=== PATIENT | male | born 1935 | race Caucasian/White ===

== ENCOUNTER 2020-01-09 22:22 | Inpatient (IN) ==
[2020-01-09] MEDS ORDERED: PNEUMOCOCCAL VACCINE (13 VALENT) 0.5 ML SYRINGE IM ONE (23:54)
[2020-01-10] MEDS ORDERED: ALBUTEROL 2.5 MG/3 ML NEB RESP TX PRN ×2 (00:58→02:35)
[2020-01-10] MEDS: ALBUTEROL/IPRATROPIUM 3 ML NEB RESP TX SCH ×4 (01:18→19:27)
[2020-01-10 01:23] LABS: Basophils % 0.2 % (0.0-0.8); Eosinophils % 0.1 % (0.00-10.9); Hematocrit 43.6 VOL% (42.0-52.0); Hemoglobin 14.6 GM/DL (14.0-18.0); Immature Granulocytes % 0.8 %; Immature Granulocytes Absolute 0.14 #; Lymphocytes # 0.7 10*3/uL (1.4-4.0); Lymphocytes % 4.1 % (21.2-54.2); Mean Corpuscular HGB Conc 33.5 GM/DL (32-36); Mean Corpuscular Volume 82.7 FL (87-102); Mean Platelet Volume 10.2 FL (9.6-12.0); Monocytes % 1.2 % (1.7-12.7); Neutrophils % 93.6 % (38.7-73.9); Platelet Count 233 T/CUMM (130-400); Red Blood Count 5.27 MC/CUMM (3.8-5.5); Red Cell Distribution Width 13.3 % (9.3-17.3); White Blood Count 17.2 T/CUMM (4-12)
[2020-01-10 01:45] LABS: Lymphocytes 2 % (20-55); Segmented Neutrophils 96 % (50-85); Total Cells Counted 100
[2020-01-10 01:47] LABS: Bilirubin,Total 0.5 MG/DL (0.2-1.0); Calcium 9.3 MG/DL (8.5-10.1); Hypochromasia 1+; Ovalocytes 1+; Platelet Estimate Normal; Total Protein 7.5 G/DL (6.4-8.3)
[2020-01-10 02:02] LABS: Troponin I 0.023 NG/ML (0.00-0.045)
[2020-01-10] MEDS: cefTRIAXone 1,000 MG in SYRINGE 1 EACH IV SCH (02:14)
[2020-01-10] MEDS ORDERED: AZITHROMYCIN INJ 500 MG in SODIUM CHLORIDE 0.9% 250 ML IV SCH (02:30)
[2020-01-10] MEDS ORDERED: DOCUSATE SODIUM 100 MG CAPSULE PO PRN (02:35)
[2020-01-10] MEDS ORDERED: ACETAMINOPHEN 325 MG TABLET PO PRN (02:35)
[2020-01-10] MEDS ORDERED: DEXTROSE 50% 25 GM/50 ML VIAL IV PRN (02:35)
[2020-01-10] MEDS ORDERED: ONDANSETRON 4 MG/2 ML VIAL IV PRN (02:35)
[2020-01-10] MEDS ORDERED: hydrALAZINE 20 MG/1 ML VIAL IV PRN (02:35)
[2020-01-10] MEDS ORDERED: GLUCAGON 1 MG VIAL IM PRN (02:35)
[2020-01-10] MEDS: LEVOTHYROXINE 75 MCG TABLET PO SCH (05:57)
[2020-01-10] MEDS: ALFUZOSIN 10 MG TABLET PO SCH (08:47)
[2020-01-10] MEDS: INSULIN LISPRO 100 UNIT/ML SUBCUT SCH ×4 (08:47→20:16)
[2020-01-10] MEDS: FEXOFENADINE 180 MG TABLET PO SCH (08:47)
[2020-01-10] MEDS: ASPIRIN 325 MG TABLET PO SCH (08:47)
[2020-01-10] MEDS: ENOXAPARIN 30 MG/0.3 ML SYRINGE SUBCUT SCH (08:47)
[2020-01-10] MEDS: carvediloL 12.5 MG TABLET PO SCH ×2 (08:48→20:16)
[2020-01-10] MEDS: amLODIPine 10 MG TABLET PO SCH (08:48)
[2020-01-10] MEDS: FERROUS SULFATE 325 MG TABLET PO SCH ×2 (08:48→20:16)
[2020-01-10] MEDS: AZITHROMYCIN 250 MG TABLET PO SCH (08:48)
[2020-01-10] MEDS: LOSARTAN 50 MG TABLET PO SCH (08:52)
[2020-01-10] MEDS ORDERED: FUROSEMIDE 40 MG TABLET PO SCH (09:00)
[2020-01-10] MEDS: FUROSEMIDE 40 MG TABLET PO SCH (20:13)
[2020-01-10] MEDS: ATORVASTATIN 20 MG TABLET PO SCH (20:16)
[2020-01-10] MEDS ORDERED: INSULIN GLARGINE 100 UNIT/ML SUBCUT SCH (21:00)
[2020-01-11] MEDS: ALBUTEROL/IPRATROPIUM 3 ML NEB RESP TX SCH ×4 (00:10→19:36)
[2020-01-11] MEDS: cefTRIAXone 1,000 MG in SYRINGE 1 EACH IV SCH (02:21)
[2020-01-11 05:55] LABS: Basophils % 0.1 % (0.0-0.8); Hematocrit 35.9 VOL% (42.0-52.0); Immature Granulocytes Absolute 0.21 #; Lymphocytes # 2.4 10*3/uL (1.4-4.0); Mean Corpuscular Volume 82.2 FL (87-102); Mean Platelet Volume 10.9 FL (9.6-12.0); Monocytes % 4.5 % (1.7-12.7); Neutrophils % 83.4 % (38.7-73.9); Platelet Count 220 T/CUMM (130-400); Red Blood Count 4.37 MC/CUMM (3.8-5.5); Red Cell Distribution Width 13.5 % (9.3-17.3); White Blood Count 21.5 T/CUMM (4-12)
[2020-01-11 06:07] LABS: Hemoglobin 12.2 GM/DL (14.0-18.0)
[2020-01-11 06:20] LABS: Albumin 2.4 G/DL (3.4-5.0); Bilirubin,Total 0.7 MG/DL (0.2-1.0); Calcium 9.3 MG/DL (8.5-10.1); Osmolality,Calculated 300.4 MOS/KG (273-304); Total Protein 6.2 G/DL (6.4-8.3)
[2020-01-11 06:23] LABS: Lymphocytes 10 % (20-55); Platelet Estimate Normal; Segmented Neutrophils 86 % (50-85); Total Cells Counted 100
[2020-01-11] MEDS: LEVOTHYROXINE 75 MCG TABLET PO SCH (06:23)
[2020-01-11] MEDS: FEXOFENADINE 180 MG TABLET PO SCH (09:36)
[2020-01-11] MEDS: ASPIRIN 325 MG TABLET PO SCH (09:36)
[2020-01-11] MEDS: AZITHROMYCIN 250 MG TABLET PO SCH (09:36)
[2020-01-11] MEDS: amLODIPine 10 MG TABLET PO SCH (09:37)
[2020-01-11] MEDS: carvediloL 12.5 MG TABLET PO SCH ×2 (09:37→20:44)
[2020-01-11] MEDS: LOSARTAN 50 MG TABLET PO SCH (09:37)
[2020-01-11] MEDS: FERROUS SULFATE 325 MG TABLET PO SCH ×2 (09:38→20:44)
[2020-01-11] MEDS: INSULIN LISPRO 100 UNIT/ML SUBCUT SCH ×4 (09:39→20:44)
[2020-01-11] MEDS: ALFUZOSIN 10 MG TABLET PO SCH (09:42)
[2020-01-11] MEDS: ENOXAPARIN 30 MG/0.3 ML SYRINGE SUBCUT SCH (09:42)
[2020-01-11] MEDS: FUROSEMIDE 40 MG TABLET PO SCH (12:31)
[2020-01-11] MEDS ORDERED: INSULIN GLARGINE 100 UNIT/ML SUBCUT SCH (13:15)
[2020-01-11] MEDS ORDERED: SODIUM CHLORIDE 0.9% 1,000 ML IV SCH (13:30)
[2020-01-11] MEDS: ATORVASTATIN 20 MG TABLET PO SCH (20:44)
[2020-01-12] MEDS: ALBUTEROL/IPRATROPIUM 3 ML NEB RESP TX SCH ×2 (01:37→07:10)
[2020-01-12] MEDS: cefTRIAXone 1,000 MG in SYRINGE 1 EACH IV SCH (02:34)
[2020-01-12] MEDS: LEVOTHYROXINE 75 MCG TABLET PO SCH (05:32)
[2020-01-12 05:58] LABS: Basophils % 0.2 % (0.0-0.8); Eosinophils # 0.1 10*3/uL (0.0-0.87); Eosinophils % 0.8 % (0.00-10.9); Hematocrit 35.8 VOL% (42.0-52.0); Hemoglobin 11.9 GM/DL (14.0-18.0); Immature Granulocytes % 0.5 %; Immature Granulocytes Absolute 0.06 #; Lymphocytes % 16.5 % (21.2-54.2); Mean Corpuscular HGB Conc 33.2 GM/DL (32-36); Mean Corpuscular Volume 83.4 FL (87-102); Mean Platelet Volume 11.6 FL (9.6-12.0); Monocytes % 5.9 % (1.7-12.7); Neutrophils % 76.1 % (38.7-73.9); Platelet Count 199 T/CUMM (130-400); Red Blood Count 4.29 MC/CUMM (3.8-5.5); Red Cell Distribution Width 13.6 % (9.3-17.3); White Blood Count 11.8 T/CUMM (4-12)
[2020-01-12 06:26] LABS: Calcium 8.4 MG/DL (8.5-10.1); Osmolality,Calculated 302.3 MOS/KG (273-304)
[2020-01-12] MEDS: INSULIN LISPRO 100 UNIT/ML SUBCUT SCH ×2 (08:35→11:52)
[2020-01-12] MEDS: ASPIRIN 325 MG TABLET PO SCH (08:39)
[2020-01-12] MEDS: ENOXAPARIN 30 MG/0.3 ML SYRINGE SUBCUT SCH (08:39)
[2020-01-12] MEDS: AZITHROMYCIN 250 MG TABLET PO SCH (08:39)
[2020-01-12] MEDS: ALFUZOSIN 10 MG TABLET PO SCH (08:39)
[2020-01-12] MEDS: LOSARTAN 50 MG TABLET PO SCH (08:40)
[2020-01-12] MEDS: FEXOFENADINE 180 MG TABLET PO SCH (08:40)
[2020-01-12] MEDS: carvediloL 12.5 MG TABLET PO SCH (08:40)
[2020-01-12] MEDS: FERROUS SULFATE 325 MG TABLET PO SCH (08:40)
[2020-01-12] MEDS: amLODIPine 10 MG TABLET PO SCH (08:40)
[2020-01-12 11:21] VITALS: BP 148/81
== END 2020-01-12 15:09 | disposition home or self-care (01) | DRG 871 ==
LOC: N.CC 23:36 → SUATTDRO 23:36 → N.4E 01-10 13:51
PROVIDERS: ADMIT Internal Medicine; ATTEND Internal Medicine